=== PATIENT | female | born 1970 | race Hispanic/Latino ===

== ENCOUNTER 2016-12-09 15:57 | Emergency (ER) | payer OTHER ==
[~2016-12-09] VITALS: Ht 154.9 cm; Wt 60.9 kg
[~2016-12-09 15:57] MED LIST: ACID REDUCER20 MG PO; ADVIL,NUPRIN,M200 MG PO; ALBUTEROL17 GM IH; AMITRIPTYLINE100 MG PO; BACLOFEN10 MG PO; BACTRIM,SEPT1 TABLET PO; CELEBREX200 MG PO; CETIRIZINE HCL10 M2 PO; CIPRO PO; CIPROFLOXACIN500 M1 PO; CLONAZEPAM0.5 MG PO; COLACE100 MG PO; CYCLOBENZAPRINE 10 M; CYCLOBENZAPRINE10 MG PO; CYMBALTA30 MG PO; CYMBALTA60 MG PO; DESYREL100 MG PO; DILAUDID2 MG PO; DOXYCYCLINE HY100 M1 PO; DOXYCYCLINE HY100 MG PO; DURAGESIC25 MCG TD; EFFEXOR XR150 MG PO; EFFEXOR25 MG PO; Effexor PO; FIORICET,ESG1 TABLET PO; FLAGYL500 MG PO; FLEXERIL10 MG PO; GABAPENTIN100 MG PO; GABAPENTIN300 MG PO; GRALISE300 MG PO; HORMONE PATCH; HYDROMORPHONE HC2 MG; HYDROXYZINE; HYDROXYZINE HCL50 MG PO; IMITREX100 MG PO; IMITREX4 MG/0.5 M SC; IMITREX6 MG/0.5 M SC; IRON PO; Imitrex SC; KEFLEX500 MG PO; KLONOPIN0.5 M1 PO; KLONOPIN1 M2; KLONOPIN1 MG PO; KlonoPIN PO; LAMICTAL ODT200 MG PO; LAMICTAL XR300 MG PO; LAMICTAL100 MG PO; LAMICTAL25 MG PO; LEVAQUIN750 MG PO; LIDODERM 5% P1 PATCH TD; LYRICA100 MG PO; LYRICA75 MG PO; Lamictal PO; Levaquin PO; MACROBID100 MG PO; MEDROL DOSEPAK4 MG PO; MELATONIN10 M1 PO; MELATONIN5 M1; METHADONE10 MG PO; METHADONE5 MG PO; MOBIC15 MG PO; MOTRIN800 MG PO; NALTREXONE HCL50 MG PO; NEURONTIN300 MG PO; NEURONTIN800 MG PO; NICODERM CQ1 EAC2 TD; NOHOMEMEDS; NORCO 5/3251 TABLET PO; NORCO 7.5/321 TABLET PO; OCEAN NASAL 0.645 ML BOTH NARES; OMEPRAZOLE40 M1 PO; OXYCODONE HCL10 MG PO; OXYCODONE HCL5 M1 PO; OXYCODONE HCL5 MG PO; OXYCONTIN10 MG PO; PEPCID COMPLET1 EACH PO; PEPCID20 MG PO; PEPCID40 MG PO; PERCOCET 5/31 TABLET; PERCOCET 5/31 TABLET PO; PRAZOSIN HCL1 MG PO; PREDNISONE; PREDNISONE10 MG PO; PREDNISONE20 MG PO; PREDNISONE50 MG PO; PRILOSEC40 MG PO; PROMETHAZINE HC25 M1 PO; PROZAC40 MG PO; PROzac PO; PYRIDIUM100 MG PO; Percocet; RANITIDINE HCL150 MG PO; RANITIDINE HCL300 MG PO; REGLAN10 MG PO; RESTASIS 01 DROP/0.4 BOTH EYES; ROBAXIN500 MG PO; SAVELLA100 MG PO; SAVELLA12.5 MG PO; SKELAXIN800 MG PO; SYMBICORT60 INHALAT IH; TESSALON200 MG PO; TORADOL10 MG PO; TRAMADOL HCL50 MG; TRAMADOL HCL50 MG PO; TRAZODONE HCL50 MG PO; TYLENOL WITH C1 EACH PO; Topamax PO; ULTRAM50 MG PO; VALACYCLOVIR500 MG PO; VALIUM5 MG PO; VENTOLIN HFA18 GM IH; VITAMIN C1000 MG PO; VYVANSE50 MG PO; VYVANSE70 MG PO; Voltaren PO; XANAX1 MG PO; ZANTAC150 MG PO; ZANTAC300 MG PO; ZITHROMAX Z-PA250 MG PO; ZOFRAN4 MG PO; Zantac PO; Zofran PO; hydroxyzine; oxyCODONE PO; vitamin d3
[2016-12-09 17:53] VITALS: BP 103/58
== END 2016-12-09 17:54 | disposition home or self-care (01) ==
LOC: EME 15:57
DX: F41.1 Generalized anxiety disorder (principal); F31.9 Bipolar disorder, unspecified; M79.7 Fibromyalgia; K21.9 Gastro-esophageal reflux disease without esophagitis; M32.9 Systemic lupus erythematosus, unspecified; Z87.442 Personal history of urinary calculi; F17.200 Nicotine dependence, unspecified, uncomplicated
CPT/HCPCS: 99281; 99283

== ENCOUNTER 2017-08-30 22:20 | Emergency (ER) | payer OTHER ==
[~2017-08-30] VITALS: Ht 154.9 cm; Wt 67.8 kg
[2017-08-31 01:52] VITALS: BP 128/78
== END 2017-08-31 01:53 | disposition home or self-care (01) ==
LOC: EME 22:20
DX: S30.0XXA Contusion of lower back and pelvis, initial encounter (principal); W19.XXXA Unspecified fall, initial encounter; M79.7 Fibromyalgia; M32.9 Systemic lupus erythematosus, unspecified; K58.9 Irritable bowel syndrome, unspecified; F32.9 Major depressive disorder, single episode, unspecified; K21.9 Gastro-esophageal reflux disease without esophagitis; Z87.442 Personal history of urinary calculi; F41.9 Anxiety disorder, unspecified; F17.200 Nicotine dependence, unspecified, uncomplicated; Z90.710 Acquired absence of both cervix and uterus; Z88.0 Allergy status to penicillin; Z88.6 Allergy status to analgesic agent; Z88.8 Allergy status to other drugs, medicaments and biological substances
CPT/HCPCS: 72100; 72220; 99281; 99284